=== PATIENT | male | born 1995 | race Caucasian/White ===

== ENCOUNTER 2018-05-04 10:43 | Emergency (ER) | payer OTHER, MEDICAID, SELFPAY ==
[2018-05-04 10:56] VITALS: BP 146/96; PULSE 127; RESP 18; TEMP 36.7; O2SAT 96; BMI 38.0
--- NOTE | 2018-05-04 11:21 | DI.RAD.S_ITS ---
PROCEDURE: XR CHEST 2V INDICATIONS: cough, fever TECHNIQUE: 2 views of the chest were acquired. COMPARISON: None. FINDINGS: Surgical changes and devices: None. Lungs and pleura: There is appearance of loculated effusion in the right apex. No pneumothorax. Lungs are clear. Mediastinum: Mediastinal contours appear mildly widened. Heart size is normal. Bones and chest wall: No suspicious bony abnormalities. Soft tissues appear unremarkable. IMPRESSION: Mildly widened mediastinum and possible loculated effusion in the right apex. Recommend chest CT with contrast for further evaluation. Dictated by: Shyann Uriarte M.D. on 05/04/2018 at 11:42 Approved by: Shyann Uriarte M.D. on 05/04/2018 at 11:47
--- NOTE | 2018-05-04 11:49 | DI.CT.S_ITS ---
PROCEDURE: CT CHEST W CON INDICATIONS: cough, tachy, abnormal cxr, per rad TECHNIQUE: After the administration of intravenous contrast, 5 mm thick sections acquired from the pulmonary apices to the posterior costophrenic angles. 7 mm thick coronal and sagittal MIP reformats were acquired. For radiation dose reduction, the following was used: automated exposure control, adjustment of mA and/or kV according to patient size. COMPARISON: [facility], CR, XR CHEST 2V, 05/04/2018, 11:22. FINDINGS: Image quality: Excellent. Lungs and pleura: There is an azygous lobe. No acute air space opacities. No pleural effusions or pneumothorax. Central and peripheral airways are patent and normal in caliber. Mediastinum: Heart size is normal. No pericardial effusion. No mediastinal or hilar adenopathy by size criteria. There is residual thymic tissue in anterior mediastinum. Thoracic aorta and central pulmonary arteries are normal in size. Esophagus is normal in caliber. No hiatal hernia. Bones and chest wall: No suspicious bony lesions. No vertebral body compression fractures. No axillary or supraclavicular adenopathy by size criteria. Thyroid gland is normal as visualized. There is gynecomastia. Abdomen: Visualized upper abdominal solid organs appear normal. Upper abdominal bowel loops are normal in caliber. IMPRESSION: 1. No findings to explain cough and tachycardia. 2. An azygous lobe, which is likely responsible for widened mediastinum and the opacity in the right apex seen on chest x-ray. Dictated by: Shyann Uriarte M.D. on 05/04/2018 at 12:43 Approved by: Shyann Uriarte M.D. on 05/04/2018 at 12:48
--- NOTE | 2018-05-04 12:05 | ED_ITS ---
HPI - URI/Sore Throat General Chief Complaint: Upper Respiratory Symptoms Stated Complaint: CONGESTION,SORE THROAT,COUGH Time Seen by Provider: 05/04/18 10:50 Source: patient and family Mode of arrival: ambulatory Limitations: no limitations History of Present Illness HPI Narrative: 22-year-old male, nonsmoker presents with family in the chief complaint of runny nose, sore throat and cough for the past 3-4 days. He has had decreased appetite but denies any vomiting or diarrhea. He denies chest pain or shortness of breath. He did get exposed to multiple people with similar upper respiratory complaints MD Complaint: cough, sore throat and rhinorrhea Onset (ago): day(s) Duration: constant Severity: moderate Relieving factors: nothing Exacerbating factors: nothing Description of mucous: clear Able to tolerate fluids by mouth: Yes Context: sick contacts Treatments prior to arrival: none Related Data Allergies Allergy/AdvReac Type Severity Reaction Status Date / Time No Known Drug Allergies Allergy Verified 05/04/18 10:56 Review of Systems Review of Systems All systems reviewed & are unremarkable except as noted in HPI and below Constitutional Denies chills, Denies fever(s), Denies lethargy and Denies weakness Eyes Denies change in vision, Denies eye discharge, Denies irritation and Denies loss of vision ENT Ears, Nose, Mouth, and Throat: Denies change in voice, Reports nasal congestion , Reports nasal discharge, Denies neck pain and Reports sore throat Cardiovascular Denies chest pain, Denies irregular heart rhythm, Denies lightheadedness, Denies palpitations, Denies dyspnea, Denies dyspnea on exertion and Denies orthopnea Respiratory Reports cough, Denies dyspnea, Denies dyspnea on exertion and Denies wheezing Gastrointestinal Gastrointestinal: Denies abdominal pain, Denies change in bowel habits, Denies diarrhea, Denies nausea and Denies vomiting Genitourinary Denies hematuria, Denies flank pain, Denies urinary incontinence and Denies urinary urgency Musculoskeletal Denies neck pain Integumentary/Breasts Denies pruritus, Denies erythema, Denies rash and Denies wounds Neurologic Denies confusion, Denies loss of vision and Denies weakness Psychiatric Denies anxiety, Denies confusion, Denies depression, Denies homicidal ideation and Denies suicidal ideation Endocrine Denies palpitations Hematologic/Lymphatic Denies easy bruising Allergic/Immunologic Denies wheezing PFSH Social History Smoking Status: Never smoker Exam Narrative Exam Narrative: 22-year-old male, pleasant in mild distress Initial Vital Signs Initial Vital Signs: Vital Signs Temperature 98.1 F 05/04/18 10:56 Pulse Rate 127 H 05/04/18 10:56 Respiratory Rate 18 05/04/18 10:56 Blood Pressure 146/96 H 05/04/18 10:56 Pulse Oximetry 96 05/04/18 10:56 Const General: cooperative, well developed and in distress Nutritional Appearance: well nourished Orientation: alert, awake, oriented x3 and not confused HENMT Head: normal to inspection Ears: hearing grossly normal bilaterally Nose: external nose normal Face and sinus: normal facial exam Mouth: oral mucosae normal Teeth and gingiva: dentition normal Throat: other (Posterior pharyngeal erythema with possible small ulcers on right greater than left. No tonsillar swelling or edema) Eyes General: appearance normal, both eyes and all related structures Eyelids: eyelids normal Conjunctivae: conjunctivae normal Sclera: sclerae normal Pupils: PERRL EOM: EOM intact bilaterally Neck Neck: normal visual inspection, trachea midline, No lymphadenopathy, No midline deformity and No JVD Lymphatic: No lymphedema Chest Chest: normal inspection of the chest Resp Effort & Inspection: normal respiratory effort Auscultation: clear to auscultation bilaterally Cardio Rate: tachycardic Rhythm: regular rhythm Heart Sounds: no click, no gallops, no murmurs and no rubs Pulses: normal peripheral pulses GI Inspection: non-distended Palpation: soft, no hepatosplenomegaly, No guarding, No pulsatile mass and No tender Auscultation: normal bowel sounds Back/Spine/Pelvis Back: No CVA tenderness Cervical Spine: cervical ROM normal and No pain with cervical ROM Thoracic/Lumbar Spine: thoracic and lumbar spine normal to inspection Neuro General: alert, oriented x3, gait normal and no focal motor deficits Speech: speech normal Course Orders Ordered: ED Orders 05/04/18 11:20 Influenza A and B by PCR Rapid Stat 05/04/18 11:21 CXR [XR chest 2V] Stat 05/04/18 11:49 CT chest w con Stat Blood Culture Stat 05/04/18 12:10 Complete Blood Count AUTO DIFF Stat Comprehensive Metabolic Panel Stat Lactate (Lactic Acid) Stat Procalcitonin Stat Sodium Chloride (Normal Saline 0.9%) 3,606.06 mls @ 1,202.02 mls/hr 30 ml/kg infuse over 3 hr (3606.06 ml) IV CONT MAUDE Last Admin: 05/04/18 13:01 Dose: 1,202.02 mls/hr Discontinued Medications Ketorolac Tromethamine (Toradol) 15 mg IV NOW ONE Stop: 05/04/18 13:11 Last Admin: 05/04/18 13:14 Dose: 15 mg Reevaluation(s) Reevaluation #1: Patient feeling much better after above-stated therapies. Heart rate down to the 90s. Prescription for Magic mouthwash written by hand and sent with patient Vital Signs - 8 hr 05/04/18 10:56 Temperature 98.1 F Pulse Rate 127 H Respiratory Rate 18 Blood Pressure 146/96 H Pulse Oximetry 96 MDM - URI/Sore Throat Differential Diagnosis Differential diagnosis: Likely upper respiratory infection Medical Records Attestation: I reviewed the patient's medical records. Lab Data Attestation: I reviewed the patient's lab results. Result diagrams: 05/04/18 12:10 05/04/18 12:10 Lab Results 05/04/18 05/04/18 05/04/18 Range/Units 11:20 12:10 12:10 WBC 13.8 H (4.5-11.0) X10^3/uL RBC 5.30 (4.5-5.9) X10^6/uL Hgb 14.9 (13.5-17.5) g/dL Hct 44.6 (41-53) % MCV 84.2 (80-100) fL MCH 28.1 (26-34) PG MCHC 33.3 (30-36) % RDW 12.9 (11.6-14.8) % Plt Count 329 (150-400) X10^3/uL Neut % (Auto) 73.2 (50-75) % Lymph % (Auto) 14.5 L (25-40) % Williams % (Auto) 11.0 (3-14) % Eos % (Auto) 0.9 L (2-4) % Baso % (Auto) 0.4 (0-2) % Neut # (Auto) 43051 H (6274-0791) /uL Sodium (137-145) mmol/L Potassium (3.4-5.1) mmol/L Chloride (98-107) mmol/L Carbon Dioxide (22-32) mmol/L BUN (9-20) mg/dL Creatinine (0.66-1.25) mg/dL Estimated GFR (>60) mL/min BUN/Creatinine Ratio (6-22) Glucose (70-100) mg/dL Lactate (0.7-2.1) mmol/L Calcium (8.4-10.2) mg/dL Total Bilirubin (0.2-1.3) mg/dL AST (17-59) IU/L ALT (21-72) IU/L Alkaline Phosphatase (38-126) U/L Total Protein (6.3-8.2) g/dL Albumin (3.5-5.0) g/dL Globulin (1.7-4.1) g/dL Albumin/Globulin Ratio (1.0-2.8) Procalcitonin < 0.05 (<0.5) ng/mL Influenza A & B (PCR) Negative (Negative) 05/04/18 05/04/18 Range/Units 12:10 12:10 WBC (4.5-11.0) X10^3/uL RBC (4.5-5.9) X10^6/uL Hgb (13.5-17.5) g/dL Hct (41-53) % MCV (80-100) fL MCH (26-34) PG MCHC (30-36) % RDW (11.6-14.8) % Plt Count (150-400) X10^3/uL Neut % (Auto) (50-75) % Lymph % (Auto) (25-40) % Williams % (Auto) (3-14) % Eos % (Auto) (2-4) % Baso % (Auto) (0-2) % Neut # (Auto) (3503-2946) /uL Sodium 142 (137-145) mmol/L Potassium 3.9 (3.4-5.1) mmol/L Chloride 102 (98-107) mmol/L Carbon Dioxide 26 (22-32) mmol/L BUN 8 L (9-20) mg/dL Creatinine 0.70 (0.66-1.25) mg/dL Estimated GFR > 60.0 (>60) mL/min BUN/Creatinine Ratio 11.4 (6-22) Glucose 99 (70-100) mg/dL Lactate 0.9 (0.7-2.1) mmol/L Calcium 9.4 (8.4-10.2) mg/dL Total Bilirubin 0.7 (0.2-1.3) mg/dL AST 16 L (17-59) IU/L ALT 22 (21-72) IU/L Alkaline Phosphatase 71 (38-126) U/L Total Protein 8.0 (6.3-8.2) g/dL Albumin 4.5 (3.5-5.0) g/dL Globulin 3.5 (1.7-4.1) g/dL Albumin/Globulin Ratio 1.3 (1.0-2.8) Procalcitonin (<0.5) ng/mL Influenza A & B (PCR) (Negative) Point of Care Testing Rapid Strep A Negative Imaging Data Chest x-ray: Radiologist's impression: [address] [address] XRay Report Signed Patient: Alma Vivas MR#: [id number] : 1995 Acct:[id number] Age/Sex: 22 / M Date of Service: 05/04/18 Loc: ED Accession Number: [id number] Procedure: XR chest 2V Ordering Provider: De Vidal D.O. PROCEDURE: XR CHEST 2V INDICATIONS: cough, fever TECHNIQUE: 2 views of the chest were acquired. COMPARISON: None. FINDINGS: Surgical changes and devices: None. Lungs and pleura: There is appearance of loculated effusion in the right apex. No pneumothorax. Lungs are clear. Mediastinum: Mediastinal contours appear mildly widened. Heart size is normal. Bones and chest wall: No suspicious bony abnormalities. Soft tissues appear unremarkable. IMPRESSION: Mildly widened mediastinum and possible loculated effusion in the right apex. Recommend chest CT with contrast for further evaluation. Dictated by: Shyann Uriarte M.D. on 05/04/2018 at 11:42 Approved by: Shyann Uriarte M.D. on 05/04/2018 at 11:47 CT scan - chest: Radiologist's impression: Patient: Alma Vivas MR#: [id number] : 1995 Acct:[id number] Age/Sex: 22 / M Date of Service: 05/04/18 Loc: ED Accession Number: [id number] Procedure: CT chest w con Ordering Provider: De Vidal D.O. PROCEDURE: CT CHEST W CON INDICATIONS: cough, tachy, abnormal cxr, per rad TECHNIQUE: After the administration of intravenous contrast, 5 mm thick sections acquired from the pulmonary apices to the posterior costophrenic angles. 7 mm thick coronal and sagittal MIP reformats were acquired. For radiation dose reduction, the following was used: automated exposure control, adjustment of mA and/or kV according to patient size. COMPARISON: [facility], CR, XR CHEST 2V, 05/04/2018, 11:22. FINDINGS: Image quality: Excellent. Lungs and pleura: There is an azygous lobe. No acute air space opacities. No pleural effusions or pneumothorax. Central and peripheral airways are patent and normal in caliber. Mediastinum: Heart size is normal. No pericardial effusion. No mediastinal or hilar adenopathy by size criteria. There is residual thymic tissue in anterior mediastinum. Thoracic aorta and central pulmonary arteries are normal in size. Esophagus is normal in caliber. No hiatal hernia. Bones and chest wall: No suspicious bony lesions. No vertebral body compression fractures. No axillary or supraclavicular adenopathy by size criteria. Thyroid gland is normal as visualized. There is gynecomastia. Abdomen: Visualized upper abdominal solid organs appear normal. Upper abdominal bowel loops are normal in caliber. IMPRESSION: 1. No findings to explain cough and tachycardia. 2. An azygous lobe, which is likely responsible for widened mediastinum and the opacity in the right apex seen on chest x-ray. Dictated by: Shyann Uriarte M.D. on 05/04/2018 at 12:43 Approved by: Shyann Uriarte M.D. on 05/04/2018 at 12:48 Discharge Plan Departure Patient Disposition: Home Clinical Impression: Upper respiratory infection Instructions: DI for Viral Upper Respiratory Infection -- Adult Activity Restrictions/Additional Instructions: *You have been diagnosed with [ acute viral upper respiratory infection ] *What to do: *Take medications as directed: Prescription for magic mouthwash is handwritten *Follow up with your primary care provider in 2-3 days, call for an appointment. Let them know you were seen in the Emergency Department and that we ask that you be seen in follow up *Return to ER if you should have any new, worsening or concerning symptoms
[2018-05-04 12:06] LABS: Influenza A and B by PCR Rapid Negative (Negative)
[2018-05-04 12:27] LABS: Add Manual Diff / Slide Review NO; Basophils Percent Auto 0.4 % (0-2); Eosinophils Percent Auto 0.9 % (2-4); Hematocrit 44.6 % (41-53); Hemoglobin 14.9 g/dL (13.5-17.5); Lymphocytes Percent Auto 14.5 % (25-40); Mean Corpuscular HGB Conc 33.3 % (30-36); Mean Corpuscular Hemoglobin 28.1 PG (26-34); Mean Corpuscular Volume 84.2 fL (80-100); Neutrophils Absolute Auto 10100 /uL (1500-7000); Neutrophils Percent Auto 73.2 % (50-75); Platelet Count 329 X10^3/uL (150-400); Red Cell Distribution Width 12.9 % (11.6-14.8); White Blood Cell Count 13.8 X10^3/uL (4.5-11.0)
[2018-05-04 12:38] LABS: Lactate (Lactic Acid) 0.9 mmol/L (0.7-2.1)
[2018-05-04 12:39] LABS: Alanine Aminotransferase 22 IU/L (21-72); Albumin 4.5 g/dL (3.5-5.0); Albumin Globulin Ratio 1.3 (1.0-2.8); Alkaline Phosphatase 71 U/L (38-126); Aspartate Aminotransferase 16 IU/L (17-59); BUN Creatinine Ratio 11.4 (6-22); Bilirubin Total 0.7 mg/dL (0.2-1.3); Blood Urea Nitrogen 8 mg/dL (9-20); Calcium 9.4 mg/dL (8.4-10.2); Carbon Dioxide 26 mmol/L (22-32); Chloride 102 mmol/L (98-107); Estimated Glomerular Filt Rate > 60.0 mL/min (>60); Globulin 3.5 g/dL (1.7-4.1); Glucose 99 mg/dL (70-100); HEMOLYSIS < 15 (0-50); Potassium 3.9 mmol/L (3.4-5.1); Sodium 142 mmol/L (137-145)
[2018-05-04 12:54] LABS: Procalcitonin < 0.05 ng/mL (<0.5)
[2018-05-04] MEDS: SODIUM CHLORIDE 0.9% 1202.02 ML IV (13:01)
[2018-05-04] MEDS: KETOROLAC 60 MG/2 ML VIAL 15 MG IV (13:14)
[2018-05-04 14:23] VITALS: BP 129/76; PULSE 102; RESP 24; O2SAT 97
[2018-05-04 15:03] VITALS: BP 129/76; PULSE 98; RESP 23; O2SAT 98
== END 2018-05-04 15:04 | disposition home or self-care (01) ==
PROVIDERS: Emergency Provider Emergency Medicine; PCP Family Medicine
DX: J02.9 Acute pharyngitis, unspecified (principal); J06.9 Acute upper respiratory infection, unspecified
CPT/HCPCS: 36415; 36591; 71046; 71260; 80053; 83605; 84145; 85025; 87040; 87400; 87880; 96361; 96374; 99283; 99285; J1885; Q9967